=== PATIENT | male | born 1975 | race Caucasian/White ===

== ENCOUNTER 2018-12-01 17:08 | Emergency (ER) | payer SELFPAY ==
[~2018-12-01] VITALS: Ht 190.5 cm; Wt 90.9 kg
[2018-12-01] MEDS ORDERED: IBUPROFEN 600 MG TABLET PO ONE (17:45)
[2018-12-01 19:26] VITALS: BP 126/68
== END 2018-12-01 19:53 | disposition home or self-care (01) ==
LOC: EMS 17:10
DX: S92.515A Nondisplaced fracture of proximal phalanx of left lesser toe(s), initial encounter for closed fracture (principal); F17.210 Nicotine dependence, cigarettes, uncomplicated; W22.8XXA Striking against or struck by other objects, initial encounter; Y93.89 Activity, other specified; Y92.89 Other specified places as the place of occurrence of the external cause; Y99.8 Other external cause status